=== PATIENT | female | born 1980 | race Caucasian/White ===

== ENCOUNTER → 2016-12-10 | Day surgery (SDC) | payer OTHER ==
[~2016-12-10] MED LIST: NO MEDICATIONS; [UNRECOGNIZED DRUG - OTHER]
--- NOTE | ~2016-12-10 | OR ---
Unit #: [id number] #: [id number] Patient: JUDIE EID [id number] [address] [place], [place] [address] [id number] O MR#: [id number] NAME: JUDIE EID ROOM: Date of Procedure: 12/10/2016 Admission Date: 12/10/2016 Surgeon: Walter Reynolds Jr., M.D. : 1980 Attending Physician: Walter Reynolds Jr., M.D. Primary Care Physician: Chana Wynn A.P.R.N. OPERATIVE REPORT INDICATIONS FOR PROCEDURE The patient is a 36-year-old white female, recently presented to the office complaining of intermittent mid epigastric and right upper quadrant abdominal pain with biliary colic like symptoms. Workups revealed evidence of gallstones. She is brought in this time at her request for laparoscopic cholecystectomy. PREOPERATIVE DIAGNOSES Biliary colic with chronic cholecystitis and cholelithiasis. POSTOPERATIVE DIAGNOSES Biliary colic with chronic cholecystitis and cholelithiasis, noting some adhesions in the lower abdomen probably from previous surgery. ANESTHESIA General with endotracheal intubation and 0.5% Marcaine with epinephrine locally in the port sites. PROCEDURE PERFORMED Laparoscopic cholecystectomy. DESCRIPTION OF PROCEDURE The patient was positioned in supine position. After being anesthetized and intubated, she was prepped and draped in routine fashion for laparoscopic cholecystectomy. A small infraumbilical incision was made approximately a 1 cm in length. This was carried down to the fascia. The fascia in the umbilicus was lifted with a towel clip and a Veress needle introduced into the abdomen. The abdomen was then inflated with CO2 gas. A 5-mm port was introduced into the abdomen followed by the camera. There was no evidence of any injury related to introduction of the port of the Veress needle. Brief intra-abdominal exploration was carried out. The patient was noted to have multiple omental adhesions to the anterior abdominal wall in the lower portion of the abdomen and boggy uterus with a small amount of physiologic fluid in the pelvis, but no evidence of any other specific abnormalities. The liver was somewhat globular and fatty. Two 5-mm ports were placed laterally and an 11-mm port just to the right of the upper midline. The gallbladder was lifted. Dissection was carried down in the triangle of Calot, cystic duct which was approximately 2 mm in diameter was isolated, hemoclipped x3, and divided. The cystic artery was identified, hemoclipped x3, and divided. The gallbladder was then removed from its bed with a small duct of Luschka being encountered near the base, which was also hemoclipped and divided. After the gallbladder was removed Unit #: [id number] #: [id number] Patient: JUDIE EID from the bed, it was placed in EndoCatch bag and brought out through the larger port site and sent to pathology. The larger port was then replaced. Subhepatic space checked. There was no evidence of any bleeding from the gallbladder bed. The clips on cystic duct and cystic artery were intact with no evidence of any leak or bleeding. A small amount of blood and bile were absorbed up on the sponge placed intraabdominal. These fluids were basically secondary to manipulation of the gallbladder. Again, the clips on cystic duct and cystic artery were checked and intact with no evidence of any leak or bleeding. The gallbladder bed was checked and noted to be hemostatic. After the fascia in the larger port site to the right of the upper midline was approximated with the neoClose technique, CO2 was expressed from the abdomen. There was no evidence of any bleeding from the port sites with removal of the ports. The port sites were injected with 0.5% Marcaine with epinephrine locally and irrigated and after hemostasis achieved with Bovie cautery, skin edges were approximated with stainless-steel skin clips with skin stapling device. Sterile dressings were applied externally. Estimated blood loss less than 50 mL. The patient received less than 1000 mL crystalloid solution during the procedure. Sponges and instrument counts were correct x3. No drains used. No complications. The patient was taken to the recovery room with stable vital signs in satisfactory condition. Dictated by... Walter Reyonlds Jr., M.D. JMB/edilma TD: 12/11/2016 01:38 JOB #: [id number] OPERATIVE REPORT X Walter Reynolds MD X PROCEDURE OPERATIVE NOTE
[2016-12-10 11:16] LABS: ALBUMIN SERUM 3.3 g/dL (3.5-5.0); ALKALINE PHOSPHATASE 65 U/L (32-92); ALT (SGPT) 20 U/L (10-40); AST (SGOT) 22 U/L (10-42); BILIRUBIN,TOTAL 0.3 mg/dL (0.2-2.0); BLOOD UREA NITROGEN 11 mg/dL (9-23); BUN/CREATININE RATIO 15.71; CALCIUM SERUM 8.6 mg/dL (8.4-10.2); CARBON DIOXIDE 25 mmol/L (22-31); CHLORIDE 107 mmol/L (100-111); CREATININE SERUM 0.7 mg/dL (0.6-1.4); GLOM FILT RATE Estimated ABOVE60 mL/min (>60); GLUCOSE FASTING 85 mg/dL (70-110); POTASSIUM 3.9 mmol/L (3.5-5.1); PROTEIN TOTAL SERUM 6.7 g/dL (6.0-8.3); SODIUM 138 mmol/L (135-145)
== END | disposition home or self-care (01) ==
LOC: CSUR 08:02
PROVIDERS: Surgery
DX: K80.10 Calculus of gallbladder with chronic cholecystitis without obstruction (principal)
CPT/HCPCS: 80053; 84703; 88304; J0330; J0690; J1650; J2250; J2405; J3010

== ENCOUNTER 2017-05-18 15:45 | Emergency (ER) | payer SELFPAY ==
[~2017-05-18] VITALS: Ht 162.6 cm; Wt 63.5 kg
== END 2017-05-18 16:45 | disposition home or self-care (01) ==
LOC: SED 15:45
DX: L03.115 Cellulitis of right lower limb (principal); S80.861A Insect bite (nonvenomous), right lower leg, initial encounter; W57.XXXA Bitten or stung by nonvenomous insect and other nonvenomous arthropods, initial encounter
CPT/HCPCS: 96372; 99283